=== PATIENT | female | born 1995 | race Hispanic/Latino ===

== ENCOUNTER 2024-07-01 12:55 | Emergency (ER) | payer BC ==
[~2024-07-01] VITALS: Ht 162.6 cm; Wt 129.3 kg
--- NOTE | 2024-07-01 13:13 | ERN ---
ED Note History of Present Illness Stated Complaint: STOMACH PAIN X 4 DAYS Chief Complaint: Abdominal Pain Time Seen by MD: 13:05 Dictation: PATIENT IS A 29-YEAR-OLD FEMALE COMING IN WITH HER MOTHER WITH COMPLAINTS OF EPIGASTRIC PAIN NAUSEA VOMITING ONSET LAST NIGHT AFTER EATING BANGLADESHI SOUP. SHE STATES SHE HAD BEEN FEELING BAD DURING THE DAY YESTERDAY HOWEVER SHE FELT BETTER LAST NIGHT AND DECIDED TO EAT. SHE STATES SHE HAS BEEN HAVING NAUSEA VOMITING TODAY AND HAS BURNING IN THE UPPER PART OF HER STOMACH. NO PRIMARY CARE DOCTOR AND HAS NOT TAKEN ANYTHING PRIOR TO ARRIVAL FOR PAIN. SHE DENIES BEING A DIABETIC Allergies: Coded Allergies: No Known Drug Allergies (Unverified Allergy, Unknown, 07/01/24) Past Medical History Past Medical History: No Pertinent History Surgical History: None PSYCH History: no pertinent psych hx History: Not Applicable LMP: Jun 23, 2024 : 0 Para: 0 Aborts: 0 RN Note Reviewed/Agreed w/PFSH: Yes Review of System Dictation CONSTITUTIONAL: NEGATIVE EXCEPT FOR HPI HEAD/FACE: NEGATIVE EXCEPT FOR HPI EENT: NEGATIVE EXCEPT FOR HPI RESPIRATORY: NEGATIVE EXCEPT FOR HPI GASTROINTESTINAL/ABDOMINAL: NEGATIVE EXCEPT FOR HPI EPIGASTRIC PAIN WITH NAUSEA VOMITING GENITOURINARY: NEGATIVE EXCEPT FOR HPI MUSCULOSKELETAL: NEGATIVE EXCEPT FOR HPI INTEGUMENTARY: NEGATIVE EXCEPT FOR HPI NEUROLOGICAL/PSYCH: NEGATIVE EXCEPT FOR HPI HEMATOLOGIC/LYMPHATIC: NEGATIVE EXCEPT FOR HPI ALL SYSTEMS NEGATIVE, EXCEPT NOTED ABOVE. 13 POINT REVIEW OF SYSTEMS ASSESSED AND ALL NEGATIVE EXCEPT FOR ABOVE. Initial Vital Sign VS Vital Signs Date Time Temp Pulse Resp B/P (MAP) Pulse Ox O2 Delivery O2 Flow Rate FiO2 07/01/24 13:07 98.2 Room Air* 0 21 07/01/24 13:07 80 16 98 Physical Exam Dictation VITAL SIGNS REVIEWED GENERAL APPEARANCE: ALERT, ORIENTED X 3, MODERATE ACUTE DISTRESS, WELL DEVELOPED, NOURISHED. OBESE HEAD AND FACE: NON-TRAUMATIC. EYES: PERRL, PINK CONJUNCTIVAS, EYELID NO TRAUMA, ANTERIOR CHAMBER WITH ARCUS SENILIS. EARS: PINNAS INTACT AND NO SIGNS OF TRAUMA OR ERYTHEMA EAR CANALS CLEAR AND NO DISCHARGE TM NO ERYTHEMA NOSE: NO DISCHARGE, NO BLEEDING. OROPHARYNX: MOUTH NORMAL, TONGUE PINK, PHARYNX CLEAR,NO ERYTHEMA, TONSILS NO EXUDATES, NO ABSCESSES NOTED, MUCOUS MEMBRANE MOIST NECK: SUPPLE, NON-TENDER, NO THYROMEGALY, NO MASSES, NO JVD, NO BRUITS BREAST:DEFERRED CHEST:NO TENDERNESS, NO CREPITUS, NO PARADOXICAL MOVEMENT, NO RETRACTIONS LUNGS:CLEAR, WELL-VENTILATED, SYMMETRIC, NO RALES, NO WHEEZING, NO RHONCHI, NO STRIDOR, GOOD BREATH SOUNDS BILATERALLY HEART: REGULAR RATE, REGULAR RHYTHM, NO MURMUR, NO GALLOPS VASCULAR: NO PERIPHERAL EDEMA, ABDOMEN: SOFT, POSITIVE BOWEL SOUNDS, NONDISTENDED, NO GUARDING, NEGATIVE RAMSEY'S SIGN, POSITIVE EPIGASTRIC TENDERNESS WITH PALPATION. RECTAL: DEFERRED GENITAL: DEFERRED NEUROLOGICAL: NORMAL SPEECH, MOTOR FUNCTION INTACT, SENSORY FUNCTION INTACT MUSCULOSKELETAL: NECK NONTENDER, FULL RANGE OF MOTION, BACK NONTENDER, FULL RANGE OF MOTION, EXTREMITIES: NONTENDER, FULL RANGE OF MOTION SKIN: COLOR PINK, DRY, NO TURGOR, NO RASH, NO LACERATIONS, NO ABRASIONS, NO CONTUSIONS. LYMPHATIC: DEFERRED Results (Laboratory/Radiology) Laboratory/Radiology Laboratory Tests Test 07/01/24 13:53 07/01/24 17:15 White Blood Count 16.6 K/uL (4.8-10.8) H Red Blood Count 5.35 MIL/uL (4.00-5.50) Hemoglobin 15.6 g/dL (12.0-16.0) Hematocrit 45.3 % (36-48) Mean Corpuscular Volume 84.7 fL (79-99) Mean Corpuscular Hemoglobin 29.2 pg (27.0-33.0) Mean Corpuscular Hemoglobin Concent 34.4 g/dL (32.0-36.0) Red Cell Distribution Width 13.0 % (11.0-15.5) Platelet Count 339 K/uL (130-400) Mean Platelet Volume 8.9 fL (7.5-10.5) Immature Granulocyte % (Auto) 0.4 % (0-1) Neutrophils (%) (Auto) 69.1 % (40.0-77.0) Lymphocytes (%) (Auto) 20.2 % (21.0-51.0) L Monocytes (%) (Auto) 5.4 % (3.0-13.0) Eosinophils (%) (Auto) 4.7 % (0.0-8.0) Basophils (%) (Auto) 0.2 % (0.0-5.0) Neutrophils # (Auto) 11.5 K/uL (1.8-7.7) H Lymphocytes # (Auto) 3.3 K/uL (1.0-4.8) Monocytes # (Auto) 0.9 K/uL (0.1-1.0) Eosinophils # (Auto) 0.77 K/uL (0.00-0.70) H Basophils # (Auto) 0.03 K/uL (0.00-0.20) Absolute Immature Granulocyte (auto 0.06 K/uL (0-1) Nucleated Red Blood Cells 0.0 % (0.0-0.19) Sodium Level 139 mmol/L (136-145) Potassium Level 3.8 mmol/L (3.5-5.1) Chloride Level 104 mmol/L (101-111) Carbon Dioxide Level 27 mmol/L (21-32) Blood Urea Nitrogen 10 mg/dL (7-18) Creatinine 0.7 mg/dL (0.5-1.0) Glomerular Filtration Rate Calc 121 mL/min (>90) Random Glucose 96 mg/dL (70-105) Total Calcium 8.7 mg/dL (8.5-10.1) Lipase 31 U/L (16-77) Urine Color LIGHT-YELLOW (YELLOW) Urine Appearance CLEAR (CLEAR) Urine pH 6.5 (5.0-8.0) Urine Specific [place] OVER (1.001-1.031) Urine Protein 30 mg/dL (NEGATIVE) H Urine Glucose (UA) NEGATIVE mg/dL (NEGATIVE) Urine Ketones 20 mg/dL (NEGATIVE) H Urine Occult Blood LARGE (NEGATIVE) H Urine Nitrate NEGATIVE (NEGATIVE) Urine Bilirubin NEGATIVE mg/dL (NEGATIVE) Urine Urobilinogen 0.2 mg/dL (0.2-1.0) Urine Leukocyte Esterase NEGATIVE Mabel/uL Urine RBC 2-5 /HPF (0-1) H Urine WBC 2-5 /HPF (0-1) H Urine Squamous Epithelial Cells FEW /HPF (0-2) Urine Bacteria RARE /HPF (None Seen) Urine HCG, Qualitative NEGATIVE (NEGATIVE) CT ABDOMEN/PELVIS W/CONTRAST HISTORY: Nausea and vomiting COMPARISON: None TECHNIQUE: Multiple sequential axial images of the abdomen and pelvis were obtained from the dome of the diaphragm through symphysis pubis. Patient was given 100 cc of Omnipaque through intravenous route. Oral contrast was not given. FINDINGS: No pleural effusion is seen bilaterally. There is no evidence of parenchymal disease or pulmonary nodule of the visualized lower lungs. Degenerative changes of the thoracolumbar spine are present. The heart is not enlarged. Liver is enlarged with fatty changes measuring 22 cm. Gastric distention is seen. The liver, spleen, adrenal glands and pancreas are unremarkable. There is no evidence of hydronephrosis bilaterally. No evidence of renal stone is seen. Fecal material is seen in the colon. There are normal size retroperitoneal and mesenteric lymph nodes. No ascites is seen. No CT evidence of acute appendicitis is seen. There is fluid-filled small bowel loops and colon may be related to enterocolitis. Pelvic sidewalls are symmetric bilaterally. Bladder is poorly distended. IMPRESSION: 1. No CT evidence of acute appendicitis is seen. There is fluid-filled small bowel loops and colon may be related to enterocolitis. Labs Reviewed?: Yes ED Course ED Course Orders Procedure Category Date Status Time Cbc With Differential LAB 07/01/24 Complete 13:11 ,Urine Test LAB 07/01/24 Complete 13:11 Urinalysis Profile LAB 07/01/24 Complete 13:11 0.9%Nacl 1000ml (Ns PHA 07/01/24 Complete 1000ml) 13:30 Morphine 2mg Syg PHA 07/01/24 Complete (Morphine 2mg Syg) 13:30 Ondansetron 4mg Inj PHA 07/01/24 Complete (Zofran 4mg Inj) 13:30 Famotidine 20mg Vial PHA 07/01/24 Complete (Pepcid 20mg Vial) 13:30 Lipase LAB 07/01/24 Complete 13:11 Basic Metabolic Panel LAB 07/01/24 Complete 13:11 Ct Abdomen/Pelvis CT 07/01/24 Resulted W/Contrast 15:25 Ketorolac PHA 07/01/24 Complete Tromethamine 30mg/Ml 15:30 Iohexol (Omnipaque) PHA 07/01/24 Complete 15:41 Ceftriaxone 1g Vial PHA 07/01/24 Complete (Rocephine 1g Inj) 17:30 Current Medications Medications (Trade) Dose Ordered Sig/Bridgette Route PRN Reason Start Time Stop Time Status Last Admin Dose Admin Ceftriaxone Sodium (ROCEphine 1G INJ) 1 gm ONCE ONCE IM 07/01/24 17:30 07/01/24 17:31 DC 07/01/24 17:47 Famotidine (Pepcid 20mg Vial) 20 mg ONCE ONCE IV 07/01/24 13:30 07/01/24 13:31 DC 07/01/24 14:31 Iohexol (Omnipaque) 35,000 mg STK-MED ONCE IV 07/01/24 15:41 07/01/24 15:41 DC Ketorolac Tromethamine (toRADol) 30 mg ONCE ONCE IVP 07/01/24 15:30 07/01/24 15:31 DC 07/01/24 15:42 Morphine Sulfate (morPHINE 2MG SYG) 2 mg ONCE ONCE IVP 07/01/24 13:30 07/01/24 13:31 DC 07/01/24 14:35 Ondansetron HCl (zoFRAN 4MG INJ) 4 mg ONCE ONCE IVP 07/01/24 13:30 07/01/24 13:31 DC 07/01/24 14:31 Sodium Chloride 1,000 ml @ 0 mls/hr ONCE ONCE IV 07/01/24 13:30 07/01/24 13:31 DC 07/01/24 14:31 Vital Signs Date Time Temp Pulse Resp B/P (MAP) Pulse Ox O2 Delivery O2 Flow Rate FiO2 07/01/24 14:30 98.2 74 16 118/97 98 Room Air* 0 21 07/01/24 13:07 98.2 80 16 128/96 98 Room Air 0 07/01/24 13:07 98.2 Room Air* 0 21 1525, PATIENT NOW STATES PAIN IS MIGRATED MORE TOWARD THE MIDDLE ABDOMEN AREA TOWARD HER UMBILICUS, WE WILL GIVE ADDITIONAL ANALGESIA AND WE WILL ORDER CT OF THE ABDOMEN AND PELVIS WITH CONTRAST 1750, PATIENT STATES HER PAIN IS NOW RESOLVED. SHE WAS ADVISED TO FOLLOW A CLEAR LIQUID DIET FOR THE NEXT24 HOURS AND THEN ADVANCE DIET ON FRIDAY TO A BLAND DIET. SHE WILL BE DISCHARGED HOME WITH BENTYL/ONDANSETRON/FLAGYL/LEVAQUIN. Medical Decision Making MDM MDM: DIFFERENTIAL DIAGNOSIS: GASTROENTERITIS VERSUS DIVERTICULITIS/APPENDICITIS/UTI/DEHYDRATION/ELECTROLYTE IMBALANCE RATIONALE: TESTS CONSIDERED AND ORDERED SECONDARY TO SHARED DECISION MAKING INCLUDE: LABS/RADIOLOGY PREVIOUS OUTSIDE RECORDS REVIEWED: OLD ER VISITS. REVIEWED RISK OF COMPLICATION AND/OR MORBIDITY OR MORTALITY OF PATIENT MANAGEMENT: NONE MEDICATIONS-PER MEDICATION RECONCILIATION SEE NURSE'S NOTES NEED FOR HOSPITALIZATION: PATIENT DOES NOT MEET CRITERIA FOR HOSPITALIZATION. NO NEED FOR EMERGENCY MAJOR/MINOR SURGERY: NO THERE ARE NO SOCIAL CONCERNS WITH THIS PATIENT. PRESCRIPTION DRUG MANAGEMENT BENTYL/ONDANSETRON/METRONIDAZOLE/LEVAQUIN PRESCRIPTIONS WILL INCLUDE SYMPTOMATIC CARE PATIENT'S PRIOR EXTERNAL MEDICAL RECORDS FROM OTHER ER VISITS WERE REVIEWED BY ME INDICATED. PRIOR TESTING AND RESULTS FROM PREVIOUS VISITS WERE REVIEWED. PRIOR TESTS WERE TAKEN INTO ACCOUNT WITH MEDICAL DECISION MAKING AND RESOURCE UTILIZATION, INDEPENDENT HISTORIAN/HISTORIANS WERE USED TO OBTAIN COMPLETE MEDICAL HISTORY. I INDEPENDENTLY INTERPRETED THE TEST THAT WERE PERFORMED, RESULTS WERE REVIEWED BY ME AND CONSIDERED FINDINGS ON RADIOLOGY IF ORDERED. MEDICAL MANAGEMENT AND EXAMINATION INTERPRETATION DISCUSSIONS WERE HAD BY ME WITH OTHER QUALIFIED HEALTHCARE PROFESSIONALS INDICATED FOR THE PATIENT'S CARE. DX & DISP Disposition: Discharge Departure Impression: Primary Impression: Bacterial enterocolitis Additional Impressions: Dehydration, Nausea vomiting and diarrhea Condition: Stable Scripts Ondansetron (Ondansetron Odt) 4 Mg Tab.rapdis 4 MG PO Q6HPRN PRN for nausea, #16 TAB 0 Refills Prov: KASSIDY ANGELES [employer] DEVELOPER 07/01/24 Levofloxacin (Levofloxacin) 500 Mg Tablet 1 TAB PO DAILY for 7 Days, #7 TAB 0 Refills Prov: KASSIDY ANGELES [employer] DEVELOPER 07/01/24 Metronidazole (Metronidazole) 500 Mg Tablet 1 TAB PO BID for 7 Days, #14 TAB 0 Refills Prov: KASSIDY ANGELES [employer] DEVELOPER 07/01/24 Dicyclomine HCl (Bentyl) 20 Mg Tab 20 MG PO Q6HPRN PRN for ABDOMINAL PAIN, #15 TAB Prov: KASSIDY ANGELES [employer] DEVELOPER 07/01/24 Additional Instructions: FOLLOW-UP WITH PRIMARY CARE PROVIDER IN 1 TO 2 DAYS. TAKE MEDICATIONS DIRECTED HERE IN THE EMERGENCY ROOM. OKAY TO CONTINUE HOME MEDICATIONS UNLESS OTHERWISE DISCUSSED DURING YOUR VISIT IN THE EMERGENCY ROOM TODAY. RETURN TO YOUR NEAREST EMERGENCY ROOM IF SYMPTOMS WORSEN OR IF THERE IS NO IMPROVEMENT. CALL 911 IF YOU NEED IMMEDIATE ASSISTANCE. TAKE TYLENOL OR MOTRIN [id number] NEEDED AND IF NO CONTRAINDICATIONS ARE PRESENT. INCREASE ORAL HYDRATION. A WOUND CULTURE OR URINE CULTURE WAS ORDERED HERE IN THE EMERG ENC[facility] ROOM DEPARTMENT PLEASE FOLLOW-UP WITH PRIMARY CARE PROVIDER AND ADVISE THEM TO GET REPEAT PORTS FROM OUR FACILITY. IF YOU HAD ANY [place] WRAP/SPLINTS THAT WERE APPLIED HERE, PLEASE DO NOT REMOVE THEM UNTIL YOU SEE YOUR PRIMARY CARE OR SPECIALTY. TAKE ANTIBIOTICS DIRECTED UNTIL GONE. TAKE BENTYL DIRECTED FOR PAIN. CLEAR LIQUID DIET FOR THE NEXT24 HOURS, THEN ADVANCE DIET SLOWLY ON FRIDAY TO YOUR REGULAR DIET. Referrals: SELF,REFERRAL (PCP) Time of Disposition: 17:49 I have reviewed the case, and I agree with, Diagnosis and Plan KASSIDY ANGELES NP Jul 01, 2024 13:13
[2024-07-01 14:06] LABS: BASOPHILS # (AUTO) 0.03 K/uL (0.00-0.20); BASOPHILS % (AUTO) 0.2 % (0.0-5.0); EOSINOPHILS # (AUTO) 0.77 K/uL (0.00-0.70); EOSINOPHILS % (AUTO) 4.7 % (0.0-8.0); HEMATOCRIT 45.3 % (36-48); IMMATURE GRANULOCYTE ABSOLUTE 0.06 K/uL (0-1); LYMPHOCYTES # (AUTO) 3.3 K/uL (1.0-4.8); LYMPHOCYTES % (AUTO) 20.2 % (21.0-51.0); MEAN CORPUSCULAR HEMOGLOBIN 29.2 pg (27.0-33.0); MEAN CORPUSCULAR HGB CONC 34.4 g/dL (32.0-36.0); MEAN CORPUSCULAR VOLUME 84.7 fL (79-99); MONOCYTES # (AUTO) 0.9 K/uL (0.1-1.0); MONOCYTES % (AUTO) 5.4 % (3.0-13.0); NEUTROPHILS # (AUTO) 11.5 K/uL (1.8-7.7); NEUTROPHILS % (AUTO) 69.1 % (40.0-77.0); PLATELET COUNT (AUTO) 339 K/uL (130-400); RED BLOOD CELL COUNT(AUTO) 5.35 MIL/uL (4.00-5.50); WHITE BLOOD COUNT (AUTO) 16.6 K/uL (4.8-10.8)
[2024-07-01 14:20] LABS: CREATININE 0.7 mg/dL (0.5-1.0); POTASSIUM 3.8 mmol/L (3.5-5.1)
[2024-07-01] MEDS: FAMOTIDINE 20MG VIAL IV ONE (14:31)
[2024-07-01] MEDS: ondanSETRON 4MG INJ IVP ONE (14:31)
[2024-07-01] MEDS: 0.9%NACL 1000ML 1,000 ML IV ONE (14:31)
[2024-07-01] MEDS: morPHINE 2 MG SYG IVP ONE (14:35)
[2024-07-01] MEDS ORDERED: IOHEXOL 350 MG/ML 100ML INFUS..BTL IV ONE (15:41)
[2024-07-01] MEDS: ketOROlac 30MG VIAL (30MG/ML) IVP ONE (15:42)
--- NOTE | 2024-07-01 16:21 | HMCIMG ---
CT ABDOMEN/PELVIS W/CONTRAST HISTORY: Nausea and vomiting COMPARISON: None TECHNIQUE: Multiple sequential axial images of the abdomen and pelvis were obtained from the dome of the diaphragm through symphysis pubis. Patient was given 100 cc of Omnipaque through intravenous route. Oral contrast was not given. FINDINGS: No pleural effusion is seen bilaterally. There is no evidence of parenchymal disease or pulmonary nodule of the visualized lower lungs. Degenerative changes of the thoracolumbar spine are present. The heart is not enlarged. Liver is enlarged with fatty changes measuring 22 cm. Gastric distention is seen. The liver, spleen, adrenal glands and pancreas are unremarkable. There is no evidence of hydronephrosis bilaterally. No evidence of renal stone is seen. Fecal material is seen in the colon. There are normal size retroperitoneal and mesenteric lymph nodes. No ascites is seen. No CT evidence of acute appendicitis is seen. There is fluid-filled small bowel loops and colon may be related to enterocolitis. Pelvic sidewalls are symmetric bilaterally. Bladder is poorly distended. IMPRESSION: 1. No CT evidence of acute appendicitis is seen. There is fluid-filled small bowel loops and colon may be related to enterocolitis. CT was performed with one or more following dose reduction techniques: automated exposure control, adjustment of the mA and kv according to patient's size, or use of a iterative reconstruction technique.
[2024-07-01 17:25] LABS: ADD UA MICROSCOPIC YES; APPEARANCE,URINE CLEAR (CLEAR); BILIRUBIN,URINE NEGATIVE (NEGATIVE); COLOR,URINE LIGHT-YELLOW (YELLOW); GLUCOSE, URINE (UA) NEGATIVE (NEGATIVE); KETONES,URINE 20 mg/dL (NEGATIVE); LEUKOCYTE ESTERASE ,URINE NEGATIVE Leu/uL (NEGATIVE); NITRATE,URINE NEGATIVE (NEGATIVE); OCCULT BLOOD,URINE LARGE (NEGATIVE); PH,URINE 6.5 (5.0-8.0); PROTEIN,URINE 30 mg/dL (NEGATIVE); UROBILINOGEN,URINE 0.2 mg/dL (0.2-1.0)
[2024-07-01 17:28] LABS: BACTERIA,URINE RARE /HPF (None Seen); HCG,QUALITATIVE URINE NEGATIVE (NEGATIVE); MUCUS,URINE MOD LPF (None Seen); SQUAMOUS EPITHELIAL CELL,UR FEW /HPF (0-2)
[2024-07-01] MEDS: cefTRIAXone 1G VIAL IM ONE (17:47)
[2024-07-01] MEDS ORDERED: LEVO-70 PO (17:51)
[2024-07-01] MEDS ORDERED: ONDA-243 PO (17:51)
[2024-07-01] MEDS ORDERED: DICY20TA2 PO (17:51)
[2024-07-01] MEDS ORDERED: METR-172 PO (17:51)
[2024-07-01 17:58] VITALS: BP 115/95; PULSE 72; RESP 16; TEMP 98.2; O2SAT 98
== END 2024-07-01 18:09 | disposition home or self-care (01) ==
LOC: EDH 12:55
DX: A04.9 Bacterial intestinal infection, unspecified (principal); E86.0 Dehydration
CPT/HCPCS: 99284; 74177; 96374; 96375; 96361; 80048; 83690; 85025; 81001; 81025; 36415; 96372; J3490; J2270; J7030; J0696; J2405; J1885; Q9967